=== PATIENT | female | born 1935 | race Caucasian/White ===

== ENCOUNTER 2017-02-26 04:39 | Emergency (ER) | payer MEDICARE, MEDICAID ==
[2017-02-26] MEDS ORDERED: HYDROcodone/Acetaminophen 10/325 mg Tablet ONE (05:03)
== END 2017-02-26 05:08 | disposition home or self-care (01) ==
LOC: MADERS 04:39
DX: R33.9 Retention of urine, unspecified (principal); I10 Essential (primary) hypertension; E03.9 Hypothyroidism, unspecified; Z79.899 Other long term (current) drug therapy
CPT/HCPCS: 99283

== ENCOUNTER 2017-11-16 09:13 | Outpatient (CLI) | payer MEDICARE, MEDICAID ==
[2017-11-16 09:57] LABS: #Basophils 0.1 thou/uL (0.0-0.2); #Eosinphils 0.5 thou/uL (0.0-0.7); #Lymphocytes 3.9 thou/uL (1.20-3.40); #Monocytes 1.1 thou/uL (0.11-0.59); #Neutrophils 4.4 thou/uL (1.40-6.50); %Basophils 1.4 % (0.0-1.0); %Eosinophils 4.7 % (0.0-10.0); %Lymphocytes 38.7 % (21.0-51.0); %Monocytes 10.9 % (0.0-10.0); %Neutrophils 44.4 % (42.0-75.0); Hemoglobin 12.5 g/dL (12.0-16.0); Mean Corpuscular HGB CONC 32.2 g/dL (32.0-36.0); Mean Corpuscular Hemoglobin 29.4 pg (27.0-31.0); Mean Corpuscular Volume 91.3 fL (78.0-98.0); Mean Platelet Volume 8.2 fL (7.4-10.4); Platelet Count 271 thou/uL (130-400); RBC Distribution Width 12.1 % (11.5-14.5); Red Blood Cell (RBC) Count 4.25 mill/uL (4.20-5.40)
[2017-11-16 10:07] LABS: Anion Gap 16 mmol/L (10-20); BUN (Urea Nitrogen) 21 mg/dL (9.8-20.1); Calc. Creatinine Clearance 0 mL/min (70-130); Calcium 9.6 mg/dL (7.8-10.44); Carbon Dioxide 23 mmol/L (23-31); Chloride 105 mmol/L (98-107); Estimated GFR-MDRD 51; Glucose 139 mg/dL (83-110); Sodium 140 mmol/L (136-145); Uric Acid 8.3 mg/dL (2.6-6.0)
== END 2017-11-16 09:14 | disposition home or self-care (01) ==
LOC: MADLAB 09:13
PROVIDERS: ATTEND Internal Medicine Rheumatology
DX: M10.9 Gout, unspecified (principal)
CPT/HCPCS: 36415; 80048; 84550; 85025

== ENCOUNTER 2018-06-28 09:47 | Emergency (ER) | payer MEDICARE, MEDICAID | END 2018-06-28 11:19 | disposition home or self-care (01) | LOC: MADERS 09:47 | DX: J32.9 Chronic sinusitis, unspecified (principal); I10 Essential (primary) hypertension; Z86.73 Personal history of transient ischemic attack (TIA), and cerebral infarction without residual deficits; E03.9 Hypothyroidism, unspecified; Z79.899 Other long term (current) drug therapy; Z79.82 Long term (current) use of aspirin | CPT/HCPCS: 99283 ==

== ENCOUNTER 2019-04-15 22:03 | Emergency (ER) | payer MEDICARE, MEDICAID ==
[2019-04-15] MEDS ORDERED: Acetaminophen 500 MG TAB ONE (22:35)
[2019-04-15] MEDS ORDERED: Benzonatate 100 MG CAP ONE (22:37)
== END 2019-04-15 23:13 | disposition home or self-care (01) ==
LOC: MADERS 22:03
DX: J11.1 Influenza due to unidentified influenza virus with other respiratory manifestations (principal); I10 Essential (primary) hypertension; E03.9 Hypothyroidism, unspecified; Z86.73 Personal history of transient ischemic attack (TIA), and cerebral infarction without residual deficits; Z79.01 Long term (current) use of anticoagulants; Z79.899 Other long term (current) drug therapy
CPT/HCPCS: 99282

== ENCOUNTER 2019-04-26 13:36 | Emergency (ER) | payer MEDICARE, MEDICAID ==
--- NOTE | 2019-04-26 14:30 | RAD ---
PA AND LATERAL CHEST: HISTORY: Worsening new cough. Recent flu. COMPARISON: 06/18/2008 FINDINGS: The heart size is normal. The aorta is tortuous. The lungs are well expanded without focal areas of c onsolidation, pneumothoraces or pleural effusions. IMPRESSION: No acute process. POS: [id number]
[2019-04-26 14:38] LABS: #Basophils 0.1 thou/uL (0.0-0.2); #Eosinphils 0.2 thou/uL (0.0-0.7); #Lymphocytes 3.7 thou/uL (1.20-3.40); #Monocytes 0.8 thou/uL (0.11-0.59); #Neutrophils 9.2 thou/uL (1.40-6.50); %Basophils 0.8 % (0.0-1.0); %Eosinophils 1.3 % (0.0-10.0); %Lymphocytes 26.5 % (21.0-51.0); %Monocytes 5.7 % (0.0-10.0); %Neutrophils 65.9 % (42.0-75.0); Hemoglobin 12.4 g/dL (12.0-16.0); Mean Corpuscular HGB CONC 31.6 g/dL (32.0-36.0); Mean Corpuscular Hemoglobin 28.5 pg (27.0-31.0); Mean Corpuscular Volume 90.3 fL (78.0-98.0); Mean Platelet Volume 5.9 fL (7.4-10.4); Platelet Count 445 thou/uL (130-400); RBC Distribution Width 11.9 % (11.5-14.5); Red Blood Cell (RBC) Count 4.34 mill/uL (4.20-5.40); White Blood Cell (WBC) Count 13.9 thou/uL (4.8-10.8)
[2019-04-26 14:54] LABS: ALT (SGPT) 24 U/L (8-55); AST (SGOT) 19 U/L (5-34); Albumin 3.9 g/dL (3.4-4.8); Alkaline Phosphatase 113 U/L (40-110); Anion Gap 19 mmol/L (10-20); BUN (Urea Nitrogen) 15 mg/dL (9.8-20.1); Bilirubin, Total 0.4 mg/dL (0.2-1.2); Calc. Creatinine Clearance 0 mL/min (70-130); Carbon Dioxide 25 mmol/L (23-31); Chloride 94 mmol/L (98-107); Estimated GFR-MDRD 42; Globulin 3.2 g/dL (2.4-3.5); Glucose 153 mg/dL (83-110); Potassium 3.5 mmol/L (3.5-5.1); Protein, Total 7.1 g/dL (6.0-8.3); Sodium 134 mmol/L (136-145)
[2019-04-26] MEDS ORDERED: Azithromycin 250 MG TAB ONE (16:35)
[2019-04-26] MEDS ORDERED: Amoxicillin/Potassium Clav 875 MG TAB ONE (16:35)
== END 2019-04-26 16:44 | disposition home or self-care (01) ==
LOC: MADERS 13:36
DX: J18.9 Pneumonia, unspecified organism (principal); I10 Essential (primary) hypertension; E03.9 Hypothyroidism, unspecified; Z79.01 Long term (current) use of anticoagulants; Z86.73 Personal history of transient ischemic attack (TIA), and cerebral infarction without residual deficits; Z79.899 Other long term (current) drug therapy
CPT/HCPCS: 71046; 80053; 83880; 84484; 85025; 87804; 93005

== ENCOUNTER 2019-05-20 16:35 | Emergency (ER) | payer MEDICARE, MEDICAID ==
[~2019-05-20 16:35] MED LIST: Sodium Chloride 0.9% 1,000 ML BAG ONE
[2019-05-20 18:03] LABS: #Eosinphils 0.1 thou/uL (0.0-0.7); #Lymphocytes 0.6 thou/uL (1.20-3.40); #Monocytes 0.2 thou/uL (0.11-0.59); #Neutrophils 11.2 thou/uL (1.40-6.50); %Basophils 0.3 % (0.0-1.0); %Eosinophils 0.6 % (0.0-10.0); %Lymphocytes 4.5 % (21.0-51.0); %Monocytes 1.8 % (0.0-10.0); %Neutrophils 92.8 % (42.0-75.0); Hemoglobin 11.8 g/dL (12.0-16.0); Mean Corpuscular HGB CONC 31.5 g/dL (32.0-36.0); Mean Corpuscular Hemoglobin 28.7 pg (27.0-31.0); Mean Corpuscular Volume 91.4 fL (78.0-98.0); Mean Platelet Volume 7.2 fL (7.4-10.4); Platelet Count 297 thou/uL (130-400); RBC Distribution Width 12.4 % (11.5-14.5); Red Blood Cell (RBC) Count 4.11 mill/uL (4.20-5.40); White Blood Cell (WBC) Count 12.1 thou/uL (4.8-10.8)
[2019-05-20 18:10] LABS: Bilirubin Negative (Negative); Blood, Urine Trace (Negative); Clarity Clear (Clear); Glucose, Urine (Dipstick) Negative (Negative); Leukocyte Small (Negative); Nitrite Negative (Negative); Protein, Urine (Dipstick) Negative (Neg-Trace); Urobilinogen 0.2 mg/dL (Less than 2)
[2019-05-20 18:13] LABS: Bacteria/HPF 1+ HPF (None Seen); RBC/HPF 0-3 HPF (0-3); Squamous Epithelial 0-3 HPF (0-3)
[2019-05-20 18:17] LABS: ALT (SGPT) 13 U/L (8-55); AST (SGOT) 15 U/L (5-34); Alkaline Phosphatase 90 U/L (40-110); Anion Gap 19 mmol/L (10-20); BUN (Urea Nitrogen) 28 mg/dL (9.8-20.1); Bilirubin, Total 0.3 mg/dL (0.2-1.2); Calc. Creatinine Clearance 0 mL/min (70-130); Calcium 9.6 mg/dL (7.8-10.44); Carbon Dioxide 19 mmol/L (23-31); Chloride 102 mmol/L (98-107); Estimated GFR-MDRD 37; Glucose 92 mg/dL (83-110); Potassium 4.1 mmol/L (3.5-5.1); Sodium 136 mmol/L (136-145)
[2019-05-20] MEDS ORDERED: Acetaminophen 500 MG TAB ONE (18:33)
[2019-05-20] MEDS ORDERED: cefTRIAXone\\ROCEPHIN 2 GM VIAL ONE (18:42)
[2019-05-20] MEDS ORDERED: Oseltamivir 75 MG CAP ONE (18:42)
[2019-05-20] MEDS ORDERED: Sodium Chloride 0.9% 200 ML ONE (18:42)
--- NOTE | 2019-05-20 19:03 | RAD ---
CHEST TWO VIEWS: History: Cough. Sepsis. FINDINGS: Heart size is within normal limits. There are arthrosclerotic changes of the aorta. Chronic appearing lung changes are seen. No focal infiltrative process. IMPRESSION: No active intrathoracic disease. POS: [id number]
== END 2019-05-20 20:50 | disposition short-term general hospital (02) ==
LOC: MADERS 16:35
DX: A41.9 Sepsis, unspecified organism (principal); N39.0 Urinary tract infection, site not specified; I10 Essential (primary) hypertension; E03.9 Hypothyroidism, unspecified; Z86.73 Personal history of transient ischemic attack (TIA), and cerebral infarction without residual deficits; Z79.899 Other long term (current) drug therapy; Z79.82 Long term (current) use of aspirin
CPT/HCPCS: 36415; 71046; 80053; 81003; 81015; 83605; 85025; 87040; 87077; 87086; 87186; 87804; 94760; 96365; 96366; 96368; J0696; J3370; J3490; J7050; J7070

== ENCOUNTER 2019-05-29 05:26 | Emergency (ER) | payer MEDICARE, MEDICAID ==
[2019-05-29] MEDS ORDERED: Ondansetron PF 4 MG/2 ML Vial ONE (05:59)
[2019-05-29] MEDS ORDERED: Sodium Chloride 0.9% 1,000 ML ONE (05:59)
[2019-05-29 06:16] LABS: #Basophils 0.2 thou/uL (0.0-0.2); #Eosinphils 0.5 thou/uL (0.0-0.7); #Lymphocytes 2.8 thou/uL (1.20-3.40); #Neutrophils 6.3 thou/uL (1.40-6.50); %Basophils 1.4 % (0.0-1.0); %Eosinophils 4.3 % (0.0-10.0); %Lymphocytes 26.4 % (21.0-51.0); %Monocytes 9.4 % (0.0-10.0); %Neutrophils 58.4 % (42.0-75.0); Hemoglobin 11.8 g/dL (12.0-16.0); Mean Corpuscular HGB CONC 31.8 g/dL (32.0-36.0); Mean Corpuscular Hemoglobin 28.6 pg (27.0-31.0); Mean Corpuscular Volume 89.7 fL (78.0-98.0); Mean Platelet Volume 6.9 fL (7.4-10.4); Platelet Count 376 thou/uL (130-400); RBC Distribution Width 12.4 % (11.5-14.5); Red Blood Cell (RBC) Count 4.13 mill/uL (4.20-5.40); White Blood Cell (WBC) Count 10.7 thou/uL (4.8-10.8)
[2019-05-29 06:33] LABS: ALT (SGPT) 19 U/L (8-55); AST (SGOT) 22 U/L (5-34); Albumin 4.1 g/dL (3.4-4.8); Alkaline Phosphatase 94 U/L (40-110); Anion Gap 17 mmol/L (10-20); BUN (Urea Nitrogen) 15 mg/dL (9.8-20.1); Bilirubin, Total 0.7 mg/dL (0.2-1.2); Calc. Creatinine Clearance 0 mL/min (70-130); Calcium 9.9 mg/dL (7.8-10.44); Carbon Dioxide 20 mmol/L (23-31); Chloride 94 mmol/L (98-107); Estimated GFR-MDRD 48; Glucose 112 mg/dL (83-110); Potassium 3.8 mmol/L (3.5-5.1); Protein, Total 7.1 g/dL (6.0-8.3); Sodium 127 mmol/L (136-145)
[2019-05-29 06:35] LABS: Bilirubin Negative (Negative); Blood, Urine Negative (Negative); Clarity Clear (Clear); Glucose, Urine (Dipstick) Negative (Negative); Leukocyte Moderate (Negative); Nitrite Negative (Negative); Protein, Urine (Dipstick) Negative (Neg-Trace); Urobilinogen 0.2 mg/dL (Less than 2)
[2019-05-29 06:38] LABS: RBC/HPF 0-3 HPF (0-3)
[2019-05-29 06:39] LABS: Bacteria/HPF Rare-Few HPF (None Seen); Squamous Epithelial 0-3 HPF (0-3)
[2019-05-29] MEDS ORDERED: cefTRIAXone\\ROCEPHIN 1 GM VIAL ONE (07:46)
[2019-05-29] MEDS ORDERED: Sodium Chloride 0.9% 100 ML ONE (07:46)
[2019-05-29] MEDS ORDERED: Magnesium 2 GM/50 ML BAG (IN WATER) ONE (07:46)
--- NOTE | 2019-05-29 07:46 | RAD ---
XR Chest 1 View Portable HISTORY: Influenza and kidney infection COMPARISON: 05/20/2019 FINDINGS: The heart size is normal. The lungs are well expanded without focal areas of consolidation, pneumothorax or pleural effusions. IMPRESSION: No radiographic evidence of acute cardiopulmonary process.
== END 2019-05-29 08:58 | disposition home or self-care (01) ==
LOC: MADERS 05:26
DX: E83.40 Disorders of magnesium metabolism, unspecified (principal); N39.0 Urinary tract infection, site not specified; E87.1 Hypo-osmolality and hyponatremia; E78.5 Hyperlipidemia, unspecified; I10 Essential (primary) hypertension; E03.9 Hypothyroidism, unspecified; Z86.73 Personal history of transient ischemic attack (TIA), and cerebral infarction without residual deficits
CPT/HCPCS: 71045; 80053; 81003; 81015; 83605; 83735; 84443; 84484; 85025; 87040; 87086; 93005; 96361; 96365; 96367; 96375; J0696; J2405; J3475; J3490; J7050

== ENCOUNTER 2020-01-12 15:37 | Emergency (ER) | payer MEDICARE, MEDICAID ==
[2020-01-12] MEDS ORDERED: Sodium Chloride 0.9% 1,000 ML ONE ×2 (17:05→18:28)
[2020-01-12] MEDS ORDERED: Ondansetron PF 4 MG/2 ML Vial ONE (17:05)
[2020-01-12 17:30] LABS: #Basophils 0.1 thou/uL (0.0-0.2); #Eosinphils 0.1 thou/uL (0.0-0.7); #Monocytes 0.7 thou/uL (0.11-0.59); %Basophils 0.8 % (0.0-1.0); %Eosinophils 0.5 % (0.0-10.0); %Lymphocytes 25.7 % (21.0-51.0); %Monocytes 5.6 % (0.0-10.0); %Neutrophils 67.4 % (42.0-75.0); Hemoglobin 12.6 g/dL (12.0-16.0); Mean Corpuscular HGB CONC 33.9 g/dL (32.0-36.0); Mean Corpuscular Hemoglobin 29.2 pg (27.0-31.0); Mean Corpuscular Volume 86.1 fL (78.0-98.0); Mean Platelet Volume 7.2 fL (7.4-10.4); Platelet Count 361 thou/uL (130-400); RBC Distribution Width 12.2 % (11.5-14.5); Red Blood Cell (RBC) Count 4.31 mill/uL (4.20-5.40); White Blood Cell (WBC) Count 11.8 thou/uL (4.8-10.8)
[2020-01-12 17:48] LABS: ALT (SGPT) 28 U/L (8-55); AST (SGOT) 26 U/L (5-34); Alkaline Phosphatase 106 U/L (40-110); Anion Gap 19 mmol/L (10-20); BUN (Urea Nitrogen) 21 mg/dL (9.8-20.1); Bilirubin, Total 0.5 mg/dL (0.2-1.2); Calc. Creatinine Clearance 0 mL/min (70-130); Calcium 9.5 mg/dL (7.8-10.44); Carbon Dioxide 19 mmol/L (23-31); Chloride 84 mmol/L (98-107); Estimated GFR-MDRD 47; Glucose 97 mg/dL (83-110); Lipase 10 U/L (8-78); Potassium 4.7 mmol/L (3.5-5.1)
[2020-01-12 17:49] LABS: Sodium 117 mmol/L (136-145)
--- NOTE | 2020-01-12 18:35 | RAD ---
XR Chest 1 View Portable History: Chest pain Comparison: Radiograph May 2019 Findings: Mild peripheral fibrosis throughout the lungs. No confluent airspace consolidation, pneumot horax or effusion. Moderate vascular calcifications. Impression: No acute intrathoracic abnormality.
[2020-01-12 19:21] LABS: Bilirubin Negative (Negative); Blood, Urine Negative (Negative); Clarity Clear (Clear); Glucose, Urine (Dipstick) Negative (Negative); Ketone, Urine Negative (Negative); Leukocyte Negative (Negative); Nitrite Negative (Negative); Protein, Urine (Dipstick) Negative (Neg-Trace); Urobilinogen 0.2 mg/dL (Less than 2); pH, Urine 6.5 (5.0-9.0)
== END 2020-01-12 19:45 | disposition short-term general hospital (02) ==
LOC: MADERS 15:37
DX: E87.1 Hypo-osmolality and hyponatremia (principal); K05.30 Chronic periodontitis, unspecified; R07.9 Chest pain, unspecified; E03.9 Hypothyroidism, unspecified; E78.5 Hyperlipidemia, unspecified; E78.00 Pure hypercholesterolemia, unspecified; I10 Essential (primary) hypertension; Z86.73 Personal history of transient ischemic attack (TIA), and cerebral infarction without residual deficits; Z79.82 Long term (current) use of aspirin; Z79.899 Other long term (current) drug therapy; Z79.891 Long term (current) use of opiate analgesic
CPT/HCPCS: 71045; 80053; 81003; 83605; 83690; 84484; 85025; 93005; 96361; 96374; J2405; J7050

== ENCOUNTER 2020-09-16 12:13 | Emergency (ER) | payer MEDICARE | END 2020-09-16 12:50 | disposition home or self-care (01) | LOC: MADERS 12:13 | DX: I89.1 Lymphangitis (principal); E03.9 Hypothyroidism, unspecified; E78.5 Hyperlipidemia, unspecified; E78.00 Pure hypercholesterolemia, unspecified; I10 Essential (primary) hypertension; Z86.73 Personal history of transient ischemic attack (TIA), and cerebral infarction without residual deficits; Z87.19 Personal history of other diseases of the digestive system; Z79.82 Long term (current) use of aspirin; Z79.899 Other long term (current) drug therapy | CPT/HCPCS: 99283 ==

== ENCOUNTER 2021-03-25 21:24 | Emergency (ER) | payer MEDICARE, OTHER ==
[2021-03-25] MEDS ORDERED: Meclizine HCl 25 MG TAB ONE (22:46)
[2021-03-25 22:58] LABS: Bilirubin Negative (Negative); Blood, Urine Negative (Negative); Clarity Clear (Clear); Glucose, Urine (Dipstick) Negative (Negative); Ketone, Urine Negative (Negative); Leukocyte Moderate (Negative); Nitrite Negative (Negative); Protein, Urine (Dipstick) Negative (Neg-Trace); Specific Gravity, Urine 1.015 (1.005-1.030); Urobilinogen 0.2 mg/dL (Less than 2)
[2021-03-25 23:00] LABS: Bacteria/HPF 3+ HPF (None Seen); RBC/HPF 0-3 HPF (0-3); WBC/HPF 21-50 HPF (0-3)
[2021-03-25] MEDS ORDERED: cefTRIAXone\\ROCEPHIN 1 GM VIAL ONE (23:36)
== END 2021-03-25 23:59 | disposition home or self-care (01) ==
LOC: MADERS 21:24
DX: N39.0 Urinary tract infection, site not specified (principal); R42 Dizziness and giddiness; I10 Essential (primary) hypertension; E78.5 Hyperlipidemia, unspecified; E78.00 Pure hypercholesterolemia, unspecified; E03.9 Hypothyroidism, unspecified; M10.9 Gout, unspecified; Z86.73 Personal history of transient ischemic attack (TIA), and cerebral infarction without residual deficits; Z79.82 Long term (current) use of aspirin; Z79.899 Other long term (current) drug therapy
CPT/HCPCS: 70450; 81003; 81015; 87077; 87086; 87186; 93005; 96372; J0696

== ENCOUNTER 2021-06-15 09:38 | Emergency (ER) | payer MEDICARE, OTHER ==
[~2021-06-15 09:38] MED LIST changes: -Sodium Chloride 0.9% 1,000 ML BAG ONE; +Sodium Chloride 0.9% 500 ML BAG ONE
[2021-06-15 11:07] LABS: #Basophils 0.1 thou/uL (0.0-0.2); #Eosinphils 0.1 thou/uL (0.0-0.7); #Lymphocytes 2.8 thou/uL (1.20-3.40); #Monocytes 1.2 thou/uL (0.11-0.59); #Neutrophils 11.9 thou/uL (1.40-6.50); %Basophils 0.9 % (0.0-1.0); %Eosinophils 0.6 % (0.0-10.0); %Lymphocytes 17.2 % (21.0-51.0); %Monocytes 7.3 % (0.0-10.0); %Neutrophils 73.9 % (42.0-75.0); Hemoglobin 12.6 g/dL (12.0-16.0); Mean Corpuscular HGB CONC 34.1 g/dL (32.0-36.0); Mean Corpuscular Hemoglobin 29.1 pg (27.0-31.0); Mean Corpuscular Volume 85.3 fL (78.0-98.0); Mean Platelet Volume 6.5 fL (7.4-10.4); Platelet Count 398 thou/uL (130-400); RBC Distribution Width 11.6 % (11.5-14.5); Red Blood Cell (RBC) Count 4.32 mill/uL (4.20-5.40); White Blood Cell (WBC) Count 16.1 thou/uL (4.8-10.8)
[2021-06-15 11:24] LABS: ALT (SGPT) 20 U/L (8-55); AST (SGOT) 48 U/L (5-34); Albumin 4.3 g/dL (3.4-4.8); Alkaline Phosphatase 108 U/L (40-110); Anion Gap 17 mmol/L (10-20); BUN (Urea Nitrogen) 31 mg/dL (9.8-20.1); Bilirubin, Total 1.2 mg/dL (0.2-1.2); Calc. Creatinine Clearance 0 mL/min (70-130); Calcium 8.8 mg/dL (7.8-10.44); Carbon Dioxide 23 mmol/L (23-31); Chloride 78 mmol/L (98-107); Globulin 2.8 g/dL (2.4-3.5); Glucose 110 mg/dL (83-110); Potassium 4.4 mmol/L (3.5-5.1); Protein, Total 7.1 g/dL (5.8-8.1)
[2021-06-15 11:37] LABS: Sodium 114 mmol/L (136-145)
[2021-06-15 11:50] LABS: Bilirubin Negative (Negative); Blood, Urine Large (Negative); Glucose, Urine (Dipstick) Negative (Negative); Ketone, Urine Negative (Negative); Leukocyte Small (Negative); Nitrite Negative (Negative); Protein, Urine (Dipstick) Negative (Neg-Trace); Specific Gravity, Urine 1.015 (1.005-1.030); Urobilinogen 0.2 mg/dL (Less than 2)
[2021-06-15 11:57] LABS: Clarity Hazy (Clear)
[2021-06-15 11:58] LABS: Bacteria/HPF 1+ HPF (None Seen); Squamous Epithelial 0-3 HPF (0-3)
[2021-06-15] MEDS ORDERED: Sodium Chloride 0.9% 100 ML ONE (12:32)
[2021-06-15] MEDS ORDERED: cefTRIAXone\\ROCEPHIN 1 GM VIAL ONE (12:32)
== END 2021-06-15 13:35 | disposition short-term general hospital (02) ==
LOC: MADERS 09:38
DX: E87.1 Hypo-osmolality and hyponatremia (principal); N17.9 Acute kidney failure, unspecified; N39.0 Urinary tract infection, site not specified; I10 Essential (primary) hypertension; E03.9 Hypothyroidism, unspecified; E78.5 Hyperlipidemia, unspecified; E78.00 Pure hypercholesterolemia, unspecified; M10.9 Gout, unspecified; Z87.19 Personal history of other diseases of the digestive system; Z86.73 Personal history of transient ischemic attack (TIA), and cerebral infarction without residual deficits; Z79.82 Long term (current) use of aspirin; Z79.899 Other long term (current) drug therapy
CPT/HCPCS: 80053; 81003; 81015; 83880; 85025; 87086; 93005; 96365; J0696; J3490; J7030; J7050

== ENCOUNTER 2021-07-01 15:35 | Outpatient (CLI) | payer MEDICARE, OTHER ==
[2021-07-01 15:56] LABS: Anion Gap 14 mmol/L (10-20); BUN (Urea Nitrogen) 17 mg/dL (9.8-20.1); Calc. Creatinine Clearance 0 mL/min (70-130); Calcium 9.2 mg/dL (7.8-10.44); Carbon Dioxide 23 mmol/L (23-31); Chloride 107 mmol/L (98-107); Glucose 99 mg/dL (83-110); Potassium 4.3 mmol/L (3.5-5.1); Sodium 140 mmol/L (136-145)
== END 2021-07-01 15:36 | disposition home or self-care (01) ==
LOC: MADLAB 15:35
PROVIDERS: ATTEND Family Medicine
DX: E87.1 Hypo-osmolality and hyponatremia (principal); R53.81 Other malaise
CPT/HCPCS: 80048

== ENCOUNTER 2021-12-13 21:48 | Emergency (ER) | payer MEDICARE, MEDICAID ==
[2021-12-13] MEDS ORDERED: Cefepime 2 GM VIAL ONE (23:01)
[2021-12-13 23:22] LABS: #Basophils 0.1 thou/uL (0.0-0.2); #Eosinphils 0.3 thou/uL (0.0-0.7); #Lymphocytes 3.2 thou/uL (1.20-3.40); #Monocytes 1.3 thou/uL (0.11-0.59); #Neutrophils 6.1 thou/uL (1.40-6.50); %Basophils 0.9 % (0.0-1.0); %Eosinophils 2.7 % (0.0-10.0); %Lymphocytes 29.3 % (21.0-51.0); %Monocytes 11.7 % (0.0-10.0); %Neutrophils 55.4 % (42.0-75.0); Hemoglobin 13.3 g/dL (12.0-16.0); Mean Corpuscular HGB CONC 31.9 g/dL (32.0-36.0); Mean Corpuscular Hemoglobin 29.5 pg (27.0-31.0); Mean Corpuscular Volume 92.5 fL (78.0-98.0); Platelet Count 224 thou/uL (130-400); RBC Distribution Width 12.7 % (11.5-14.5); Red Blood Cell (RBC) Count 4.52 mill/uL (4.20-5.40); White Blood Cell (WBC) Count 11.1 thou/uL (4.8-10.8)
[2021-12-13 23:33] LABS: ALT (SGPT) 19 U/L (8-55); AST (SGOT) 24 U/L (5-34); Albumin 3.9 g/dL (3.4-4.8); Alkaline Phosphatase 100 U/L (40-110); Anion Gap 15 mmol/L (10-20); BUN (Urea Nitrogen) 15 mg/dL (9.8-20.1); Bilirubin, Total 0.7 mg/dL (0.2-1.2); CRP (Inflammatory) 4.68 mg/dL (= or < 0.5); Calc. Creatinine Clearance 0 mL/min (70-130); Carbon Dioxide 23 mmol/L (23-31); Chloride 98 mmol/L (98-107); Estimated GFR 63; Globulin 3.1 g/dL (2.4-3.5); Glucose 116 mg/dL (83-110); Potassium 4.4 mmol/L (3.5-5.1); Sodium 132 mmol/L (136-145)
== END 2021-12-13 23:32 | disposition short-term general hospital (02) ==
LOC: MADERS 21:48
DX: M65.841 Other synovitis and tenosynovitis, right hand (principal); E03.9 Hypothyroidism, unspecified; E78.00 Pure hypercholesterolemia, unspecified; I10 Essential (primary) hypertension; M10.9 Gout, unspecified; Z86.16 Personal history of COVID-19; Z79.82 Long term (current) use of aspirin; Z79.899 Other long term (current) drug therapy
CPT/HCPCS: 80053; 83605; 85025; 86140; 87040; 96365; J0692

== ENCOUNTER 2022-05-19 08:09 | Outpatient (CLI) | payer MEDICARE, MEDICAID ==
[2022-05-19 08:54] LABS: ALT (SGPT) 20 U/L (8-55); AST (SGOT) 22 U/L (5-34); Albumin 3.8 g/dL (3.4-4.8); Alkaline Phosphatase 118 U/L (40-110); Anion Gap 12 mmol/L (10-20); BUN (Urea Nitrogen) 20 mg/dL (9.8-20.1); Bilirubin, Direct 0.3 mg/dL (0.1-0.3); Bilirubin, Total 0.6 mg/dL (0.2-1.2); Calc. Creatinine Clearance 0 mL/min (70-130); Carbon Dioxide 27 mmol/L (23-31); Cardiac Risk 2.8 (Less than 4.5); Chloride 105 mmol/L (98-107); Cholesterol 129 mg/dl (< 200 Desired); Estimated GFR 58; Glucose 112 mg/dL (83-110); HDL Cholesterol 46 mg/dL (>60 Neg Risk); LDL Cholesterol, Calculated 66 mg/dL; Potassium 4.2 mmol/L (3.5-5.1); Protein, Total 7.1 g/dL (5.8-8.1); Sodium 140 mmol/L (136-145); Triglycerides 83 mg/dL (Less than 150)
== END 2022-05-19 08:10 | disposition home or self-care (01) ==
LOC: MADLAB 08:09
PROVIDERS: ATTEND Internal Medicine Cardiovascular Disease
DX: Z48.812 Encounter for surgical aftercare following surgery on the circulatory system (principal); Z98.61 Coronary angioplasty status
CPT/HCPCS: 36415; 80048; 80061; 80076

== ENCOUNTER 2023-05-04 12:31 | Emergency (ER) | payer MEDICARE, MEDICAID ==
[2023-05-04 12:54] LABS: #Basophils 0.1 thou/uL (0.0-0.2); #Eosinphils 0.3 thou/uL (0.0-0.7); #Lymphocytes 3.6 thou/uL (1.20-3.40); #Monocytes 0.6 thou/uL (0.11-0.59); #Neutrophils 5.1 thou/uL (1.40-6.50); %Basophils 0.8 % (0.0-1.0); %Eosinophils 3.1 % (0.0-10.0); %Lymphocytes 36.8 % (21.0-51.0); %Monocytes 6.1 % (0.0-10.0); %Neutrophils 53.1 % (42.0-75.0); Hematocrit 36.8 % (36.0-47.0); Hemoglobin 11.8 g/dL (12.0-16.0); Mean Corpuscular Hemoglobin 30.3 pg (27.0-31.0); Mean Corpuscular Volume 94.7 fl (78.0-98.0); Mean Platelet Volume 8.4 fL (7.4-10.4); Platelet Count 251 10x3/uL (130-400); Red Blood Cell (RBC) Count 3.89 mill/uL (4.20-5.40); White Blood Cell (WBC) Count 9.7 10x3/uL (4.8-10.8)
[2023-05-04 13:13] LABS: ALT (SGPT) 18 U/L (8-55); AST (SGOT) 32 U/L (5-34); Albumin 3.9 g/dL (3.4-4.8); Alkaline Phosphatase 126 U/L (40-110); Anion Gap 17 mmol/L (10-20); BUN (Urea Nitrogen) 20 mg/dL (9.8-20.1); Bilirubin, Total 0.8 mg/dL (0.2-1.2); Calc. Creatinine Clearance 0 mL/min (70-130); Carbon Dioxide 20 mmol/L (23-31); Chloride 103 mmol/L (98-107); Estimated GFR 46; Globulin 3.1 g/dL (2.4-3.5); Glucose 115 mg/dL (83-110); Lipase 19 U/L (8-78); Potassium 3.8 mmol/L (3.5-5.1); Sodium 136 mmol/L (136-145)
[2023-05-04 13:41] LABS: Troponin I Less than 0.010 ng/mL (< 0.028)
[2023-05-04] MEDS ORDERED: Magnesium 2 GM/50 ML BAG (IN WATER) ONE (13:51)
[2023-05-04] MEDS ORDERED: Magnesium Oxide 400 MG TAB ONE (13:51)
[2023-05-04 15:29] LABS: SARS-CoV-2 NAA Rapid Test Not Detected (NotDetected)
[2023-05-04] MEDS ORDERED: Azithromycin 250 MG TAB ONE (15:42)
[2023-05-04 16:01] LABS: Magnesium 1.9 mg/dL (1.6-2.6)
[2023-05-04 16:08] LABS: Troponin I Less than 0.010 ng/mL (< 0.028)
== END 2023-05-04 17:52 | disposition home or self-care (01) ==
LOC: MADERS 12:31
DX: I49.9 Cardiac arrhythmia, unspecified (principal); E83.42 Hypomagnesemia; E03.9 Hypothyroidism, unspecified; E78.00 Pure hypercholesterolemia, unspecified; I10 Essential (primary) hypertension; Z79.899 Other long term (current) drug therapy; Z79.82 Long term (current) use of aspirin
CPT/HCPCS: 36415; 71045; 71275; 80053; 83690; 83735; 83880; 84484; 85025; 85379; 93005; 96365; J3475; U0002

== ENCOUNTER 2024-05-09 17:58 | Emergency (ER) | payer MEDICARE, MEDICAID ==
[2024-05-09 18:50] LABS: #Basophils 0.1 thou/uL (0.0-0.2); #Eosinophils 0.3 thou/uL (0.0-0.7); #Lymphocytes 3.2 thou/uL (1.20-3.40); #Monocytes 0.8 thou/uL (0.11-0.59); #Neutrophils 4.8 thou/uL (1.40-6.50); %Basophils 1.3 % (0.0-1.0); %Eosinophils 2.8 % (0.0-10.0); %Lymphocytes 34.8 % (21.0-51.0); %Monocytes 8.6 % (0.0-10.0); %Neutrophils 52.5 % (42.0-75.0); Hematocrit 37.7 % (36.0-47.0); Hemoglobin 12.1 g/dL (12.0-16.0); Mean Corpuscular HGB CONC 32.1 g/dL (32.0-36.0); Mean Corpuscular Hemoglobin 29.5 pg (27.0-31.0); Mean Corpuscular Volume 91.8 fl (78.0-98.0); Mean Platelet Volume 7.7 fL (7.4-10.4); Platelet Count 291 10x3/uL (130-400); RBC Distribution Width 13.2 % (11.5-14.5); Red Blood Cell (RBC) Count 4.11 mill/uL (4.20-5.40); White Blood Cell (WBC) Count 9.1 10x3/uL (4.8-10.8)
[2024-05-09 19:09] LABS: ALT (SGPT) 19 U/L (8-55); AST (SGOT) 28 U/L (5-34); Albumin 3.9 g/dL (3.4-4.8); Alkaline Phosphatase 109 U/L (40-110); Anion Gap 16 mmol/L (10-20); BUN (Urea Nitrogen) 16 mg/dL (9.8-20.1); Bilirubin, Total 0.6 mg/dL (0.2-1.2); Calc. Creatinine Clearance 0 mL/min (70-130); Calcium 9.3 mg/dL (7.8-10.44); Carbon Dioxide 21 mmol/L (23-31); Chloride 98 mmol/L (98-107); Estimated GFR 67; Globulin 2.7 g/dL (2.4-3.5); Glucose 112 mg/dL (83-110); Potassium 4.4 mmol/L (3.5-5.1); Protein, Total 6.6 g/dL (5.8-8.1); Sodium 131 mmol/L (136-145)
[2024-05-09 19:10] LABS: Troponin I 0.016 ng/mL (< 0.028)
== END 2024-05-09 20:30 | disposition short-term general hospital (02) ==
LOC: MADERS 17:58
DX: I48.91 Unspecified atrial fibrillation (principal); I10 Essential (primary) hypertension; E03.9 Hypothyroidism, unspecified; E78.00 Pure hypercholesterolemia, unspecified; Z86.73 Personal history of transient ischemic attack (TIA), and cerebral infarction without residual deficits; Z79.82 Long term (current) use of aspirin; Z79.890 Hormone replacement therapy; Z79.02 Long term (current) use of antithrombotics/antiplatelets; Z79.899 Other long term (current) drug therapy
CPT/HCPCS: 71045; 80053; 83880; 84484; 85025; 93005; 94760; 96374

== ENCOUNTER 2024-12-02 07:54 | Outpatient (CLI) | payer MEDICARE, MEDICAID ==
[2024-12-02 08:39] LABS: Anion Gap 13 mmol/L (10-20); BUN (Urea Nitrogen) 20 mg/dL (9.8-20.1); Calc. Creatinine Clearance 0 mL/min (70-130); Calcium 9.0 mg/dL (7.8-10.44); Carbon Dioxide 25 mmol/L (23-31); Chloride 105 mmol/L (98-107); Glucose 92 mg/dL (83-110); Magnesium 1.5 mg/dL (1.6-2.6); Potassium 4.4 mmol/L (3.5-5.1); Sodium 139 mmol/L (136-145)
== END 2024-12-02 07:55 | disposition home or self-care (01) ==
LOC: MADLAB 07:54
PROVIDERS: ATTEND Family Medicine
DX: Z01.89 Encounter for other specified special examinations (principal); R53.83 Other fatigue
CPT/HCPCS: 36415; 80048; 83735